=== PATIENT | female | born 1990 | race American Indian/Alaskan Native ===

== ENCOUNTER 2020-12-28 18:30 | Inpatient (IN) | payer OTHER ==
[2020-12-28] MEDS ORDERED: BUTORPHANOL 2 MG/1 ML INJ IV PRN ×2 (20:31)
[2020-12-28] MEDS ORDERED: LOPERAMIDE 2 MG CAP PO PRN (20:31)
[2020-12-28] MEDS ORDERED: TERBUTALINE 1 MG/1 ML INJ SUB-Q PRN (20:31)
[2020-12-28] MEDS ORDERED: ePHEDrine SULFATE 50 MG/1 ML INJ IV PRN (20:31)
[2020-12-28] MEDS ORDERED: fentaNYL 100 MCG/2 ML INJ IV PRN (20:31)
[2020-12-28] MEDS ORDERED: CARBOPROST TROMETHAMINE 250 MCG/1 ML INJ IM PRN (20:31)
[2020-12-28] MEDS ORDERED: METHYLERGONOVINE MALEATE 0.2 MG/ML VIAL IM PRN (20:31)
[2020-12-28] MEDS ORDERED: NALOXONE 0.4 MG/1 ML INJ IV PRN (20:31)
[2020-12-28] MEDS ORDERED: MINERAL OIL 30 ML ORAL LIQD PO PRN (20:31)
[2020-12-28] MEDS ORDERED: miSOPROStol 200 MCG TAB PR PRN (20:31)
[2020-12-28] MEDS ORDERED: OXYTOCIN 10 UNIT/1 ML INJ IM PRN (20:31)
[2020-12-28] MEDS ORDERED: LIDOCAINE (2%) 20 MG/1 ML VIAL 20 ML MDV INFILTRATI ONE (20:31)
[2020-12-28] MEDS ORDERED: DINOPROSTONE 10 MG VAG SUPP VG NR (20:31)
[2020-12-28] MEDS ORDERED: ONDANSETRON 4 MG/2 ML INJ IV PRN (20:31)
[2020-12-28] MEDS ORDERED: ACETAMINOPHEN 325 MG TAB PO PRN (20:31)
[2020-12-28 20:54] LABS: Hemoglobin 11.4 gm/dl (10.1-14.3); Mean Corpuscular HGB Conc 33 % (30-34); Mean Corpuscular Volume 85 fl (79-97); Platelet Count 303 K/mm3 (140-440); Red Blood Count 4.02 M/mm3 (3.65-5.03); Red Cell Distribution Width 16.5 % (13.2-15.2)
[2020-12-28] MEDS ORDERED: OXYTOCIN DRIP 30 UNITS/500 ML BAG IV SCH (21:00)
[2020-12-29] MEDS: LACTATED RINGERS 1,000 ML IV SCH ×2 (02:32→08:02)
--- NOTE | 2020-12-29 11:37 | History and Physical Report ---
History of Present Illness Date of examination: 12/29/20 Date of admission: 12/28/20 19:07 Chief complaint: IOL secondary to oligohydramnios History of present illness: 30 yo, @ 38.5 wks, initiated care with [facility] at 10.6 wks gestation. Her has been complicated by asymmetrical IUGR (AC lagging < 1%tile) and HSV + positive. She presented to [facility] for scheduled IOL secondary to borderline oliogo and lagging abdominal circumference. Reports + FM. Denies any VB or LOF. Labs: A+, antibody negative; rubella immune; HBsAg negative; HIV negative; GC/Chlamydia/Trich negative; urine culture negative; VDRL negative; 1 hr gtt - 147; 3 hr gtt: 89, 135, 93, 76; GBS negative. Past History Past Medical History: no pertinent history Past Surgical History: no surgical history [employer] History: other (HSV-2 positive) Family/Genetic History: cancer (Breast- MGM ;cervical - sister) Social history: single, lives with family. denies: smoking, alcohol abuse, prescription drug abuse, IV drug use - Obstetrical History Expected Date of Delivery: 01/07/21 Actual Gestation: 38 Week(s) 5 Day(s) : 3 Para: 1 Hx # Term Pregnancies: 1 Number of Pregnancies: 0 Spontaneous Abortions: 0 Induced : 1 Number of Living Children: 1 #1 Infant Gender: Female year: Birthweight: 3.175 kg Method of Delivery: Vaginal Gestational age at delivery: 40 Complications: none Medications and Allergies Allergies Allergy/AdvReac Type Severity Reaction Status Date / Time No Known Allergies Allergy Unverified 12/28/20 19:50 Active Meds: Active Medications Acetaminophen (Acetaminophen 325 Mg Tab) 650 mg PO Q4H PRN PRN Reason: Pain, Mild (1-3) Butorphanol Tartrate (Butorphanol 2 Mg/1 Ml Inj) 1 mg IV Q2H PRN PRN Reason: Pain, Moderate(4-6) LABOR PAIN Butorphanol Tartrate (Butorphanol 2 Mg/1 Ml Inj) 2 mg IV Q2H PRN PRN Reason: Pain , Severe (7-10) Carboprost Tromethamine (Carboprost Tromethamine 250 Mcg/1 Ml Inj) 250 mcg IM ONCE PRN PRN Reason: Uterine Bleeding Ephedrine Sulfate (Ephedrine Sulfate 50 Mg/1 Ml Inj) 10 mg IV Q2M PRN PRN Reason: Hypotension Fentanyl (Fentanyl 100 Mcg/2 Ml Inj) 100 mcg IV Q2H PRN PRN Reason: Pain,Severe (7-10) LABOR PAIN Lactated Ringer's (Lactated Ringers) 1,000 mls @ 125 mls/hr IV DIRECT RERE Last Admin: 12/29/20 08:02 Dose: 125 mls/hr Documented by: Oxytocin/Sodium Chloride (Pitocin/Ns 30 Unit/500ml) 30 units in 500 mls @ 40 mls/hr IV TITR RERE; Protocol Loperamide HCl (Loperamide 2 Mg Cap) 2 mg PO ONCE PRN PRN Reason: give with Hemabate Methylergonovine Maleate (Methylergonovine Maleate 0.2 Mg/Ml Vial) 0.2 mg IM ONCE PRN PRN Reason: Uterine Bleeding Mineral Oil (Mineral Oil 30 Ml Oral Liqd) 30 ml PO QHS PRN PRN Reason: Constipation Misoprostol (Misoprostol 200 Mcg Tab) 800 mcg OK ONCE PRN PRN Reason: Uterine Bleeding Misoprostol (Misoprostol 25 Mcg Tab) 50 mcg PO Q4H PRN PRN Reason: Induction of labor Naloxone HCl (Naloxone 0.4 Mg/1 Ml Inj) 0.1 mg IV Q2MIN PRN PRN Reason: Res Rate </= 8 or 02 SAT < 92% Ondansetron HCl (Ondansetron 4 Mg/2 Ml Inj) 4 mg IV Q8H PRN PRN Reason: Nausea And Vomiting Oxytocin (Oxytocin 10 Unit/1 Ml Inj) 10 unit IM ONCE PRN PRN Reason: Uterine Bleeding Terbutaline Sulfate (Terbutaline 1 Mg/1 Ml Inj) 0.25 mg SUB-Q ONCE PRN PRN Reason: Hyperstimulation/Hypertonicity Review of Systems All systems: negative - Vital Signs Vital signs: Vital Signs Pulse BP 85 117/68 12/28/20 19:35 12/28/20 19:35 Temp Pulse Resp BP Pulse Ox 98.5 F 78 90/49 100 12/29/20 02:10 12/29/20 10:04 12/29/20 10:04 12/29/20 08:00 - Physical Exam Breasts: Positive: normal Cardiovascular: Regular rate Lungs: Positive: Normal air movement Abdomen: Positive: other (gravid) Uterus: Positive: enlarged (S<D) Extremities: Positive: normal - Obstetrical FHR: category 1 Uterine Contraction Monitor Mode: External Cervical Dilatation: 2 (per RN) Cervical Effacement Percentage: 50 station: -2 Uterine Contraction Pattern: Absent Uterine Tone Measurement Phase: Resting Results Result Diagrams: 12/28/20 19:46 Abnormal lab results 12/28/20 Range/Units 19:46 RDW 16.5 H (13.2-15.2) % All other labs normal. Assessment and Plan - Patient Problems (1) IUGR (intrauterine growth restriction) Current Visit: Yes Status: Acute Plan to address problem: S/P Cervidil @ 1100 May eat/ shower Initiate cytotec 50 mcg po every 4 hrs x 3 doses as tolerated Pain meds as desired per orders Anticipate NICU team at bedside for delivery (2) HSV-2 seropositive Current Visit: Yes Status: Acute
[2020-12-29] MEDS ORDERED: miSOPROStol 25 MCG TAB PO PRN (12:00)
[2020-12-29] MEDS ORDERED: OXYTOCIN DRIP 30 UNITS/500 ML BAG IV SCH (18:00)
--- NOTE | 2020-12-30 05:41 | Procedure Note ---
OB Delivery Note - Delivery Date of Delivery: 12/30/20 Surgeon: GILLIAN JACINTO Estimated blood loss: other (250ml) - Vaginal Delivery presentation: vertex Delivery position: OA Intrapartum events: other(please specify) Delivery augmentation: pitocin Delivery monitor: external FHT (Oligohydramnios), external uterine Route of delivery: Delivery placenta: spontaneous Delivery cord: 3 umbilical vessels Episiotomy: none Delivery laceration: none Anesthesia: none - A at 1 minute: 8 at 5 minutes: 9 Gender: Male (Weight 6 pounds 7 ounces)
[2020-12-30] MEDS ORDERED: WITCH HAZEL/ GLYCERIN PAD TP PRN (05:43)
[2020-12-30] MEDS ORDERED: PROMETHAZINE 25 MG RECT SUPP PR PRN (05:43)
[2020-12-30] MEDS ORDERED: LANOLIN/ZINC/DIMETHICONE (LANSINOH) 7 GM TP PRN (05:43)
[2020-12-30] MEDS ORDERED: ONDANSETRON 4 MG/2 ML INJ IV PRN (05:43)
[2020-12-30] MEDS ORDERED: diphenhydrAMINE 25 MG CAP PO PRN (05:43)
[2020-12-30] MEDS ORDERED: MAGNESIUM HYDROXIDE (MOM) ORAL LIQD UDC PO PRN (05:43)
[2020-12-30] MEDS ORDERED: PROMETHAZINE 25 MG TAB PO PRN (05:43)
[2020-12-30] MEDS ORDERED: HYDROcodone/ACETAMINOPHEN 5-325 MG TAB PO PRN (05:44)
[2020-12-30] MEDS ORDERED: ACETAMINOPHEN 325 MG TAB PO PRN (05:44)
[2020-12-30] MEDS: LACTATED RINGERS 1,000 ML IV SCH (06:55)
[2020-12-30] MEDS: IBUPROFEN 600 MG TAB PO SCH ×3 (10:32→23:26)
[2020-12-30 17:46] LABS: Hematocrit 27.9 % (30.3-42.9); Hemoglobin 9.2 gm/dl (10.1-14.3)
[2020-12-31] MEDS: IBUPROFEN 600 MG TAB PO SCH ×2 (05:55→12:10)
--- NOTE | 2020-12-31 13:40 | Progress Note ---
Assessment and Plan - Patient Problems (1) Vaginal delivery Current Visit: Yes Status: Acute Plan to address problem: Patient doing well Discharge home Subjective - Subjective Date of service: 12/31/20 Interval history: Patient without complaints. She is tolerating regular diet and pain is well controlled. Patient reports: appetite normal, voiding normally, pain well controlled [place]: doing well Objective - Vital Signs Latest vital signs: Vital Signs Temp Pulse Resp BP BP Pulse Ox Pulse Ox 12/31/20 08:13 97.6 F 77 18 117/77 99 12/31/20 08:00 99 12/31/20 05:53 99 12/31/20 03:35 97 12/31/20 01:25 97 12/31/20 00:40 98.6 F 71 18 106/65 96 12/30/20 23:24 99 12/30/20 22:20 97 12/30/20 19:50 98 12/30/20 17:20 20 12/30/20 16:22 98.8 F 75 18 106/57 98 Intake and Output 12/30/20 12/31/20 12/31/20 22:59 06:59 14:59 Intake Total 600 Output Total 425 Balance 175 Intake: Oral 240 Intake, Free Water 360 Output: Urine 425 Void 425 Other: Total, Intake Amount 240 Total, Output Amount 425 # Voids Void 1 - Exam Uterus: Present: normal, firm - Labs Labs: Abnormal lab results 12/30/20 Range/Units 17:05 Hgb 9.2 L (10.1-14.3) gm/dl Hct 27.9 L D (30.3-42.9) %
--- NOTE | 2020-12-31 13:42 | Discharge Summary ---
Providers - Providers Date of Admission: 12/28/20 19:07 Date of discharge: 12/31/20 Attending physician: NAVEED LADD Primary care physician: NAVEED LADD Hospitalization Reason for admission: induction of labor Delivery: Discharge diagnosis: IUP at term delivered Hospital course: The patient was admitted for induction of labor secondary to oligohydramnios. She had a normal spontaneous vaginal delivery. Her course was uneventful. Condition at discharge: Good Disposition: DC-01 TO HOME OR SELFCARE - Discharge Diagnoses (1) Vaginal delivery Status: Acute Plan - Discharge Medications Prescriptions: Ibuprofen [Motrin] 800 mg PO Q8HR PRN #30 tablet PRN Reason: Pain , Severe (7-10) HYDROcodone/APAP 5-325 [Gray 5/325] 1 each PO Q6HR PRN #15 tablet PRN Reason: Pain - Provider Discharge Summary Activity: no sex for 6 weeks, no heavy lifting 4 weeks, no strenuous exercise Diet: routine Instructions: routine Additional instructions: [] Smoking cessation referral if applicable(refer to patient education folder for contact #) [] Refer to [facility] Booklet Call your doctor immediately for: * Fever > 100.5 * Heavy vaginal bleeding ( >1 pad per hour) * Severe persistent headache * Shortness of breath * Reddened, hot, painful area to leg or breast * Schedule visit in 4 weeks - Follow up plan
[2020-12-31 16:52] VITALS: BP 109/69
== END 2020-12-31 15:40 | disposition home or self-care (01) | DRG 774 ==
LOC: TRG 18:30 → LD 19:07 → OB 12-30 07:55
PROVIDERS: ADMIT Obstetrics & Gynecology; ATTEND Obstetrics & Gynecology
PROC: 10E0XZZ Delivery of Products of Conception, External Approach (ICD-10-PCS; principal; 2020-12-30)
DX: O41.03X0 Oligohydramnios, third trimester, not applicable or unspecified (principal); O98.52 Other viral diseases complicating childbirth; Z3A.38 38 weeks gestation of pregnancy; Z37.0 Single live birth; Z20.822 Contact with and (suspected) exposure to COVID-19; B00.9 Herpesviral infection, unspecified
CPT/HCPCS: 36415; 59200; 85014; 85018; 85027; 86592; 86850; 86900; 86901; 99211; G0378; G0463; J0595; J2590; J3010; J7120; U0003